=== PATIENT | male | born 1965 | race African-American/Black ===

== ENCOUNTER 2018-05-17 14:11 | Emergency (ER) | payer SELFPAY ==
--- NOTE | 2018-05-17 14:56 | RAD ---
CHEST 2 VIEWS: HISTORY: Cough. COMPARISON: None. FINDINGS: The heart size is enlarged. No focal airspace consolidation, pneumothorax, or effusion. Pulmonary a rteries are dilated. No acute osseous abnormality. IMPRESSION: Cardiomegaly and pulmonary arterial hypertension. POS: TPC
[2018-05-17 17:12] LABS: #Basophils 0.1 thou/uL (0.0-0.2); #Eosinphils 0.1 thou/uL (0.0-0.7); #Lymphocytes 2.8 thou/uL (1.20-3.40); #Monocytes 0.5 thou/uL (0.11-0.59); #Neutrophils 4.1 thou/uL (1.40-6.50); %Basophils 0.9 % (0.0-1.0); %Eosinophils 1.4 % (0.0-10.0); %Lymphocytes 37.4 % (21.0-51.0); %Monocytes 6.8 % (0.0-10.0); %Neutrophils 53.6 % (42.0-75.0); Hemoglobin 15.5 g/dL (14.0-18.0); Mean Corpuscular HGB CONC 32.2 g/dL (32.0-36.0); Mean Corpuscular Hemoglobin 30.2 pg (27.0-31.0); Mean Corpuscular Volume 93.9 fL (78.0-98.0); Platelet Count 265 thou/uL (130-400); RBC Distribution Width 11.8 % (11.5-14.5); Red Blood Cell (RBC) Count 5.13 mill/uL (4.70-6.10); White Blood Cell (WBC) Count 7.6 thou/uL (4.8-10.8)
[2018-05-17 17:35] LABS: ALT (SGPT) 11 U/L (8-55); AST (SGOT) 17 U/L (5-34); Albumin 4.2 g/dL (3.5-5.0); Alkaline Phosphatase 90 U/L (40-150); Anion Gap 15 mmol/L (10-20); BUN (Urea Nitrogen) 14 mg/dL (8.4-25.7); Bilirubin, Total 0.3 mg/dL (0.2-1.2); CK (CPK) 405 U/L (30-200); Calc. Creatinine Clearance 0 mL/min (70-130); Calcium 9.7 mg/dL (7.8-10.44); Carbon Dioxide 22 mmol/L (22-29); Chloride 104 mmol/L (98-107); Estimated GFR-MDRD 89; Globulin 3.5 g/dL (2.4-3.5); Glucose 105 mg/dL (70-105); Lipase 23 U/L (8-78); Potassium 3.6 mmol/L (3.5-5.1); Protein, Total 7.7 g/dL (6.0-8.3); Sodium 137 mmol/L (136-145)
--- NOTE | 2018-05-21 13:13 | EKG ---
Test Reason : Blood Pressure : / mmHG Vent. Rate : 084 BPM Atrial Rate : 084 BPM P-R Int : 160 ms QRS Dur : 098 ms QT Int : 402 ms P-R-T Axes : 028 -11 117 degrees QTc Int : 475 ms Normal sinus rhythm Possible Left atrial enlargement Left ventricular hypertrophy with repolarization abnormality Abnormal ECG Confirmed by ARYAN RAMOS DO ([id number]), pictures editor RITA AGUIRRE ([id number]) on 05/21/2018 1:12:53 PM Referred By: Confirmed By:ARYAN RAMOS DO
== END 2018-05-17 18:23 | disposition home or self-care (01) ==
LOC: ERS 14:11
DX: J20.9 Acute bronchitis, unspecified (principal); I10 Essential (primary) hypertension
CPT/HCPCS: 36415; 71046; 80053; 82550; 83690; 83880; 84484; 85025; 93005; 94640; J7620

== ENCOUNTER 2018-06-10 11:01 | Inpatient (IN) | payer SELFPAY ==
[2018-06-10] MEDS ORDERED: Furosemide 40 MG/4 ML VIAL ONE (11:23)
[2018-06-10] MEDS ORDERED: Aspirin Chewable 81 MG TAB ONE (11:23)
[2018-06-10] MEDS ORDERED: Nitroglycerin 0.4 MG TAB 1 EACH ONE (11:23)
[2018-06-10 11:27] LABS: #Eosinphils 0.1 thou/uL (0.0-0.7); #Lymphocytes 1.8 thou/uL (1.20-3.40); #Monocytes 0.8 thou/uL (0.11-0.59); %Basophils 0.6 % (0.0-1.0); %Eosinophils 1.4 % (0.0-10.0); %Lymphocytes 26.6 % (21.0-51.0); %Monocytes 11.3 % (0.0-10.0); %Neutrophils 60.1 % (42.0-75.0); Hemoglobin 15.6 g/dL (14.0-18.0); Mean Corpuscular HGB CONC 32.5 g/dL (32.0-36.0); Mean Corpuscular Hemoglobin 30.5 pg (27.0-31.0); Mean Corpuscular Volume 93.8 fL (78.0-98.0); Mean Platelet Volume 8.1 fL (7.4-10.4); Platelet Count 219 thou/uL (130-400); White Blood Cell (WBC) Count 6.7 thou/uL (4.8-10.8)
--- NOTE | 2018-06-10 12:03 | RAD ---
PORTABLE CHEST 1 VIEW: DATE: 06/10/2018. TIME: 10:28 a.m. HISTORY: Shortness of breath, chest pain, bilateral lower extremity edema. FINDINGS: Comparison is made with the exam of 05/17/2018. The heart is enlarged. The lungs are expanded without lobar consolidation, pneumothoraces, marcos pul monary edema, or large effusions. POS: OFF
[2018-06-10 12:09] LABS: ALT (SGPT) 17 U/L (8-55); AST (SGOT) 28 U/L (5-34); Albumin 4.4 g/dL (3.5-5.0); Alkaline Phosphatase 89 U/L (40-150); Anion Gap 16 mmol/L (10-20); BUN (Urea Nitrogen) 16 mg/dL (8.4-25.7); Bilirubin, Total 0.4 mg/dL (0.2-1.2); CK (CPK) 742 U/L (30-200); Calc. Creatinine Clearance 0 mL/min (70-130); Calcium 9.7 mg/dL (7.8-10.44); Carbon Dioxide 25 mmol/L (22-29); Chloride 99 mmol/L (98-107); Estimated GFR-MDRD 87; Globulin 3.4 g/dL (2.4-3.5); Glucose 112 mg/dL (70-105); Potassium 4.2 mmol/L (3.5-5.1); Protein, Total 7.8 g/dL (6.0-8.3); Sodium 136 mmol/L (136-145)
[2018-06-10] MEDS ORDERED: ISOVUE-370 76%-LOCM 1 ML ONE (12:45)
--- NOTE | 2018-06-10 14:24 | CT ---
CT ANGIO CHEST PERFORMED WITH IV CONTRAST ENHANCEMENT WITH 3D RECONSTRUCTIONS: Date: 06/10/18 HISTORY: Shortness of breath. Orthopnea. FINDINGS: There is bibasilar consolidation with air bronchograms. No pulmonary nodules. No significant mediasti nal, hilar, or axillary adenopathy. The thoracic aorta is normal in caliber. There is good pulmonary artery opacification. There is no CT evidence for pulmonary embolus. Visualized liver parenchyma shows no focal findings. IMPRESSION: 1. Bibasilar lung changes with air bronchograms suggesting bibasilar infiltrates. 2. No CT evidence for pulmonary embolus. POS: TPC
[2018-06-10 17:27] LABS: Cocaine Metabolite Screen Detected (NotDetected); Medtox Reader # READER 1; Methamphetamine Not Detected (NotDetected); Opiate Screen Detected (NotDetected); Phencyclidine (PCP) Not Detected (NotDetected); THC/Cannabinoid Screen Detected (NotDetected)
[2018-06-10 17:28] LABS: Amphetamine Not Detected (NotDetected); Barbiturates Screen Not Detected (NotDetected); Benzodiazepine Screen Not Detected (NotDetected); Medtox Control Line Valid? VALID (VALID); Methadone Not Detected (NotDetected); Oxycodone Screen Not Detected (NotDetected); Tricyclic Screen Not Detected (NotDetected)
[2018-06-10 17:54] LABS: Troponin I 0.022 ng/mL (< 0.028)
[2018-06-10 18:31] VITALS: BMI 38.6
[2018-06-10] MEDS ORDERED: Lisinopril/Hydrochlorothiazide 20 mg/12.5 mg Tablet PO SCH (20:45)
[2018-06-10] MEDS: hydrALAZINE 20 MG/ML VIAL SLOW IVP PRN (23:30)
[2018-06-11 00:09] LABS: Troponin I 0.025 ng/mL (< 0.028)
[2018-06-11 05:30] LABS: Anion Gap 14 mmol/L (10-20); BUN (Urea Nitrogen) 13 mg/dL (8.4-25.7); Calc. Creatinine Clearance 177 mL/min (70-130); Calcium 9.9 mg/dL (7.8-10.44); Carbon Dioxide 27 mmol/L (22-29); Chloride 97 mmol/L (98-107); Estimated GFR-MDRD Greater than 90; Glucose 132 mg/dL (70-105); Potassium 3.6 mmol/L (3.5-5.1); Sodium 134 mmol/L (136-145)
[2018-06-11] MEDS ORDERED: Furosemide 40 MG/4 ML VIAL SLOW IVP SCH (09:00)
[2018-06-11] MEDS: Enoxaparin Sodium 40 MG/0.4 ML SYRINGE SC SCH (09:27)
[2018-06-11] MEDS: Sodium Chloride 0.9% (PF) 10 ML VIAL FS PRN (09:27)
[2018-06-11] MEDS: Lisinopril/Hydrochlorothiazide 20 mg/12.5 mg Tablet PO SCH (09:27)
[2018-06-11] MEDS: Pantoprazole 40 MG VIAL IVP SCH (09:27)
[2018-06-11] MEDS ORDERED: Bacteriostatic Water 30 ML VIAL FS PRN (14:36)
[2018-06-11] MEDS ORDERED: methylPREDNISolone Sod Succ/PF 125 MG/2 ML VIAL IVP SCH (14:45)
[2018-06-11] MEDS: methylPREDNISolone Sod Succ 40 MG VIAL IVP SCH ×2 (20:30→23:37)
--- NOTE | 2018-06-11 23:28 | PRG ---
DATE OF SERVICE: 06/11/2018 HISTORY OF PRESENT ILLNESS: Hong Levin is a very pleasant gentleman. He quickly admits today that he smokes marijuana, but not every day. He presents with a cough, chest congestion, and some mild shortness of breath. He subsequently has been admitted. PAST MEDICAL HISTORY: Remarkable for hypertension. SOCIAL HISTORY: He does smoke cigarettes and does smoke marijuana, chews tobacco. He is not a daily drinker. FAMILY HISTORY: Negative for lung disease in early age. REVIEW OF SYSTEMS: Ten point review of systems completed, otherwise negative. PHYSICAL EXAMINATION: VITAL SIGNS: Have been stable since he is admitted. GENERAL: He is in no distress. He is coughing quite frequently. HEENT: Pupils are equal. Sclerae anicteric. NECK: Supple. No lymphadenopathies. LUNGS: Remarkable only for faint wheezes. HEART: Regular rhythm. S1 and S2 are normal. No murmur or gallop. ABDOMEN: Soft and nontender. EXTREMITIES: Without clubbing, cyanosis, or edema. IMAGING: I reviewed his chest x-ray and all of his chest imaging. I do not see any infiltrate suggestive of pneumonia or cardiogenic pulmonary edema. LABORATORY DATA: White count yesterday 6.7, hemoglobin 15.6, platelets 219. Sodium 134, potassium 3.6, chloride 97, bicarb 27, BUN 13, and creatinine 0.87. IMPRESSION: Asthmatic bronchitis, clinically stable. He needs steroids, antibiotics, cough suppression a little time. I do not really feel that he has no community-acquired pneumonia after reviewing his radiographs, although I suppose it could be an early community-acquired pneumonia with his bibasilar atelectatic changes. PLAN: The treatment will be the same. We will follow along with the other physicians caring for him. TIME SPENT: This was a 70-minute consult, with greater than 50% of the time spent on the unit coordinating care. Job ID: [id number] [facility]
[2018-06-12] MEDS: methylPREDNISolone Sod Succ 40 MG VIAL IVP SCH ×4 (05:05→23:46)
[2018-06-12] MEDS: hydrALAZINE 20 MG/ML VIAL SLOW IVP PRN (05:06)
[2018-06-12 06:52] LABS: Anion Gap 16 mmol/L (10-20); BUN (Urea Nitrogen) 17 mg/dL (8.4-25.7); Calc. Creatinine Clearance 140 mL/min (70-130); Calcium 10.3 mg/dL (7.8-10.44); Carbon Dioxide 29 mmol/L (22-29); Chloride 94 mmol/L (98-107); Estimated GFR-MDRD 87; Glucose 166 mg/dL (70-105); Potassium 3.7 mmol/L (3.5-5.1); Sodium 135 mmol/L (136-145)
[2018-06-12] MEDS ORDERED: Furosemide 20 MG TAB PO SCH (09:00)
[2018-06-12] MEDS: Lisinopril/Hydrochlorothiazide 20 mg/12.5 mg Tablet PO SCH ×2 (10:23→20:59)
[2018-06-12] MEDS: Enoxaparin Sodium 40 MG/0.4 ML SYRINGE SC SCH (10:24)
[2018-06-12] MEDS: Sodium Chloride 0.9% (PF) 10 ML VIAL FS PRN (10:24)
[2018-06-12] MEDS: Pantoprazole 40 MG VIAL IVP SCH (10:24)
--- NOTE | 2018-06-12 15:54 | PRG ---
DATE OF SERVICE: 06/12/2018 SUBJECTIVE: Mr. Levin says he feels better. He still has a loud cough, but not coughing as much as he was yesterday. OBJECTIVE: VITAL SIGNS: He is afebrile. Heart rate is 95, blood pressure 150/94, and respiratory rate is 20. LUNGS: Remarkable for diffuse wheezes. HEART: Regular rhythm. ABDOMEN: Soft and nontender. LABORATORY DATA: Electrolytes are normal. IMPRESSION AND PLAN: Asthmatic bronchitis, slowly improving. Job ID: [id number]
[2018-06-12] MEDS: guaiFENesin ER 600 MG TAB PO PRN (22:14)
--- NOTE | 2018-06-13 01:43 | HP ---
CHIEF COMPLAINT: Shortness of breath. HISTORY OF PRESENT ILLNESS: Mr. Levin is a 53-year-old male with past medical history of hypertension, noncompliant with medications, came with shortness of breath and orthopnea started last night. The patient could not breathe this morning because the shortness of breath got worse. He has a history of hypertension, not taking medications. Also noticed bilateral leg edema for four days, which is getting worse as well. He did not have any nausea or vomiting. No headache. No dizziness. EMS was called in because of his worsening shortness of breath. EMS found the patient with a blood pressure of 194/125, O2 saturations of 90% on room air. The patient was given nitroglycerin paste and sublingual nitroglycerin and given DuoNebs and 4 mg of morphine, and was on CPAP after which the saturation improved. In the ER, the patient was still hypoxic, so he was continued on CPAP. ER physician thought pt has CHF based on the clinical exam with pitting edema as well as lung signs. The patient received a dose of Lasix and nitro and is being admitted for further evaluation and management. PAST MEDICAL HISTORY: 1. Hypertension, not taking medication. 2. Morbid obesity. 3. Possible sleep apnea, not evaluated. PAST SURGICAL HISTORY: Nothing significant. CURRENT MEDICATIONS: The patient is supposed to be on lisinopril and hydrochlorothiazide 01/07.5. FAMILY HISTORY: Nothing contributory. SOCIAL HISTORY: The patient drinks alcohol almost daily, almost five drinks per day. He quit smoking some time ago. REVIEW OF SYSTEMS: CARDIOVASCULAR: Shortness of breath with some chest pain. RESPIRATORY: No fever, but has cough, nonproductive. GASTROINTESTINAL: No nausea or vomiting. Has abdominal discomfort. CENTRAL NERVOUS SYSTEM: No headache or dizziness. PHYSICAL EXAMINATION: GENERAL: The patient is alert, awake, oriented x3. VITAL SIGNS: Temperature 98, pulse 90, respirations 18, blood pressure initially 209/126. HEENT: Head is normocephalic and atraumatic. Pupils are equal and reactive. Nasopharynx is clear and dry. NECK: Supple. No JVD. LUNGS wheezing +, rales + HEART: S1 and S2 regular. ABDOMEN: Obese, umbilical hernia present. Abdomen is mildly distended. Nontender. Bowel sounds heard. RECTAL: No symptoms. CENTRAL NERVOUS SYSTEM: No focal deficits. EXTREMITIES: 4+ pitting edema. LABORATORY DATA: CBC shows WBC 6.7, hemoglobin 15, hematocrit 47, platelets 219. Metabolic panel: Sodium 136, potassium 4.2, chloride 99, CO2 of 25, BUN 16, creatinine 1, glucose 112. CK 742, troponin I 0.022. BNP was 112. DIAGNOSTIC DATA: Chest x-ray, no evidence of acute findings. EKG shows normal sinus rhythm, no acute ST-T changes seen. ASSESSMENT: 1. Shortness of breath and cough, possible asthamatic bronchitis with respiratory failure 2. ? obstructive sleep apnea. 3. Rule out pneumonia. 4. Morbid obesity. 5. Hypertensive emergency. 6. Noncompliant with medications. 7. Alcohol abuse. PLAN: 1. Vital signs q.4 hours. 2. Activity as tolerated. 3. Allergies, NKDA. 4. Diet, cardiac. 5. duonebs i unit qid 6. Echocardiogram. 7. Troponin I x2 q.6 hours. 8. Lisinopril 20/12.5 daily. 9. Basic metabolic panel in the morning. 10. Lovenox 40 daily. 11. Protonix 40 mg IV piggyback daily. 12.steroids 13 levoquin 750 mg daily Job ID: [id number] [facility]
[2018-06-13] MEDS: methylPREDNISolone Sod Succ 40 MG VIAL IVP SCH (05:18)
[2018-06-13 06:00] LABS: Anion Gap 19 mmol/L (10-20); BUN (Urea Nitrogen) 26 mg/dL (8.4-25.7); Calc. Creatinine Clearance 116 mL/min (70-130); Calcium 10.8 mg/dL (7.8-10.44); Carbon Dioxide 29 mmol/L (22-29); Chloride 93 mmol/L (98-107); Estimated GFR-MDRD 70; Glucose 169 mg/dL (70-105); Potassium 4.6 mmol/L (3.5-5.1); Sodium 136 mmol/L (136-145)
[2018-06-13] MEDS: Lisinopril/Hydrochlorothiazide 20 mg/12.5 mg Tablet PO SCH ×2 (09:58→20:06)
[2018-06-13] MEDS: guaiFENesin ER 600 MG TAB PO PRN ×2 (09:59→22:55)
[2018-06-13] MEDS: Enoxaparin Sodium 40 MG/0.4 ML SYRINGE SC SCH (09:59)
[2018-06-13] MEDS ORDERED: predniSONE 20 MG TAB PO SCH (10:30)
--- NOTE | 2018-06-13 11:53 | PRG ---
DATE OF SERVICE: 06/13/2018 SUBJECTIVE: Mr. Levin is afebrile. OBJECTIVE: VITAL SIGNS: Heart rate in 80s, blood pressure 160/91, respiratory rate in the teens. LUNGS: His wheezes improved dramatically. HEART: Regular rhythm. ABDOMEN: Soft. LABORATORY DATA: No new lab. IMPRESSION AND PLAN: Asthmatic bronchitis. Electrolytes are unremarkable. Today's creatinine is 1.3 up from 0.8 on admission. His furosemide was discontinued yesterday afternoon. Switching to p.o. antibiotics and p.o. prednisone. He can move out of the intermediate care unit to a floor bed. Job ID: [id number]
[2018-06-13] MEDS: Amoxicillin/Potassium Clav 875 MG TAB PO SCH (20:06)
[2018-06-13 20:07] VITALS: BP 169/100
[2018-06-14 05:34] LABS: Anion Gap 15 mmol/L (10-20); BUN (Urea Nitrogen) 28 mg/dL (8.4-25.7); Calc. Creatinine Clearance 128 mL/min (70-130); Calcium 10.1 mg/dL (7.8-10.44); Carbon Dioxide 29 mmol/L (22-29); Chloride 95 mmol/L (98-107); Estimated GFR-MDRD 79; Glucose 132 mg/dL (70-105); Potassium 3.8 mmol/L (3.5-5.1); Sodium 135 mmol/L (136-145)
[2018-06-14] MEDS ORDERED: predniSONE 20 MG TAB PO SCH (08:00)
[2018-06-14] MEDS: Enoxaparin Sodium 40 MG/0.4 ML SYRINGE SC SCH (08:46)
[2018-06-14] MEDS: Amoxicillin/Potassium Clav 875 MG TAB PO SCH (08:46)
[2018-06-14] MEDS: Lisinopril/Hydrochlorothiazide 20 mg/12.5 mg Tablet PO SCH (08:46)
[2018-06-14] MEDS ORDERED: hydrALAZINE 25 MG TAB PO SCH (09:00)
[2018-06-14 15:26] VITALS: TEMP 97.8
--- NOTE | 2018-06-14 15:52 | PRG ---
DATE OF SERVICE: 06/14/2018 SUBJECTIVE: Mr. Levin says he is feeling better. He is in no distress. Surprisingly, his EF was quantitated as 40% to 50%. This is a poor quality exam, so he may actually not have a depressed left ventricular function. OBJECTIVE: LUNGS: His lungs have cleared up considerably. HEART: Regular rhythm. ABDOMEN: Soft. I have written prescriptions for prednisone, nebulizer medication, and Augmentin. I will be happy to see him in 1 to 2 weeks in the office. His echocardiogram could be repeated as an outpatient. I would think him and probably, he does not need an extensive workup on this admission since he did not present with acute congestive heart failure, may have just had asthmatic bronchitis with perhaps early pneumonia at his lung bases. Job ID: [id number]
--- NOTE | 2018-06-15 12:32 | DIS ---
DATE OF ADMISSION: 06/10/2018 DATE OF DISCHARGE: 06/14/2018 ADMITTING DIAGNOSES: 1. Shortness of breath, cough, possible asthmatic bronchitis with respiratory failure. 2. Rule out obstructive sleep apnea. 3. Rule out pneumonia. 4. Morbid obesity. 5. Hypertensive emergency. 6. Noncompliant with medication. 7. Alcohol abuse. FINAL DIAGNOSES: 1. Acute asthmatic bronchitis with respiratory failure, improved. 2. Possible pneumonia. 3. Morbid obesity. 4. Hypertensive emergency, improved. 5. Noncompliant with medication. 6. Alcohol abuse. 7. Polysubstance abuse. BRIEF SUMMARY OF HOSPITAL COURSE: Mr. Levin is a 53-year-old male admitted because of shortness of breath. The patient was found to have markedly elevated blood pressure of 190/120. The patient initially was on CPAP for respiratory failure, admitted to [facility]. The patient was found to have chest wheezing, was started on Solu-Medrol as well as neb treatments, antibiotics, Levaquin. Pulmonary consult was done. The patient was seen by Dr. Reeves, who felt that the patient has acute asthmatic bronchitis and possible pneumonia after the neb treatments, Solu-Medrol, antibiotics. In the next few days, the patient markedly improved. His blood pressure was controlled by adjusting medications, but blood pressure still remained high, so lisinopril dose was increased and also second medication was added, which was hydralazine. After this, his blood pressure was controlled. An echocardiogram was done, which revealed decreased LV function with ejection fraction of 40% to 50% and also showed some diastolic dysfunction. The patient's urine drug screen was done and it revealed positive for cocaine, cannabinoids, and opiates. The patient admits to abusing drugs. The patient markedly improved in the next 2 days. His shortness of breath improved, his chest wheezing resolved. Blood pressure was controlled in the ER. The patient is being discharged home. PHYSICAL EXAMINATION: GENERAL: At the time of discharge, he was stable. VITAL SIGNS: Stable. LUNGS: Clear. HEART: Heart sounds regular. ABDOMEN: Soft, nontender. Bowel sounds present. DISCHARGE MEDICATIONS: Include: 1. Lisinopril with hydrochlorothiazide 20/12.5 b.i.d. 2. Hydralazine 50 mg b.i.d. 3. Prednisone in tapering doses. 4. Augmentin 875 b.i.d. for 1 week. 5. DuoNebs q.i.d. The patient was strongly advised not to use cocaine and marijuana, as well as opiates. He will come for followup in 2 weeks. Job ID: [id number]
== END 2018-06-14 18:41 | disposition home or self-care (01) | DRG 203 ==
LOC: ERS 11:01 → ERHOLD 13:29 → IMCU/EMU 18:05
PROVIDERS: ADMIT Internal Medicine; ATTEND Internal Medicine
DX: J45.909 Unspecified asthma, uncomplicated (principal)
CPT/HCPCS: 36415; 71045; 71275; 80048; 80053; 80306; 82550; 83880; 84484; 85025; 93005; 93306; 94640; 94660; 94760; 96374; C9113; J0360; J1650; J1940; J1956; J2920; J2930; J7620; Q9966

== ENCOUNTER 2022-05-07 12:36 | Emergency (ER) | payer SELFPAY ==
[2022-05-07] MEDS ORDERED: Furosemide 40 MG/4 ML VIAL ONE (13:04)
[2022-05-07] MEDS ORDERED: cloNIDine 0.1 MG TAB ONE (13:04)
== END 2022-05-07 13:31 | disposition home or self-care (01) ==
LOC: ERS 12:36
DX: I10 Essential (primary) hypertension (principal); E11.9 Type 2 diabetes mellitus without complications; Z79.899 Other long term (current) drug therapy
CPT/HCPCS: 96372; 99283; J1940

== ENCOUNTER 2022-09-30 10:00 | Inpatient (IN) | payer OTHER, SELFPAY ==
[2022-09-30] MEDS ORDERED: Naloxone HCl 0.4 mg/ml Vial ONE (10:26)
[2022-09-30 10:53] LABS: #Basophils 0.1 thou/uL (0.0-0.2); #Eosinphils 0.1 thou/uL (0.0-0.7); #Monocytes 0.7 thou/uL (0.11-0.59); #Neutrophils 6.9 thou/uL (1.40-6.50); %Basophils 0.5 % (0.0-1.0); %Eosinophils 0.9 % (0.0-10.0); %Lymphocytes 18.7 % (21.0-51.0); %Monocytes 7.4 % (0.0-10.0); %Neutrophils 71.2 % (42.0-75.0); Mean Corpuscular HGB CONC 32.9 g/dL (32.0-36.0); Mean Corpuscular Hemoglobin 30.8 pg (27.0-31.0); Mean Corpuscular Volume 93.8 fl (78.0-98.0); Mean Platelet Volume 9.4 fL (7.4-10.4); Platelet Count 289 10x3/uL (130-400); RBC Distribution Width 13.7 % (11.5-14.5); Red Blood Cell (RBC) Count 2.27 mill/uL (4.70-6.10); White Blood Cell (WBC) Count 9.7 10x3/uL (4.8-10.8)
[2022-09-30 10:57] LABS: Actual Bicarbonate (HCO3a) 25.7 mEq/L (22-28); Analyzer IN Cardio ER; Base Excess (BEa) 1.9 mEq/L (-2.0 to +3.0); CO2 Tension 36.6 mmHg (35.0-45.0); Carboxyhemoglobin (COHb) 0.3 gm% (0.0-3.0); Hematocrit-ABG 22 % (42.0-52.0); Hemoglobin (Hb) 7.5 g/dL (14.0-18.0); O2 Tension (PaO2), arterial 104.1 mmHg (80.0-100.0); Potassium - ABG Lab 3.37 mmol/L (3.70-5.30); pH, Arterial 7.465 (7.35-7.45)
[2022-09-30 10:59] LABS: Puncture Site Right Brachial
[2022-09-30 11:18] LABS: ALT (SGPT) 7 U/L (8-55); AST (SGOT) 11 U/L (5-34); Acetaminophen Less than 10 mcg/mL (10.0-30.0); Albumin 3.1 g/dL (3.5-5.0); Alcohol Less than 10.0 mg/dL (Less than 10); Alkaline Phosphatase 84 U/L (40-110); Anion Gap 13 mmol/L (10-20); BUN (Urea Nitrogen) 15 mg/dL (8.4-25.7); Bilirubin, Total 0.3 mg/dL (0.2-1.2); Calc. Creatinine Clearance 0 mL/min (70-130); Calcium 8.4 mg/dL (7.8-10.44); Carbon Dioxide 26 mmol/L (22-29); Chloride 101 mmol/L (98-107); Estimated GFR 58; Globulin 3.6 g/dL (2.4-3.5); Glucose 175 mg/dL (70-105); Potassium 3.5 mmol/L (3.5-5.1); Protein, Total 6.7 g/dL (6.0-8.3); Salicylate Less than 8.0 mg/dL (15.0-30.0); Sodium 136 mmol/L (136-145)
[2022-09-30 12:05] LABS: Bacteria/HPF None Seen HPF (None Seen); Bilirubin Negative (Negative); Blood, Urine Negative (Negative); CAUTI Indications for Culture Alt mental st,lethar; Clarity Clear (Clear); Glucose, Urine (Dipstick) Normal (Negative); Ketone, Urine Negative (Negative); Leukocyte Negative Leu/uL (Negative); Nitrite Negative (Negative); Protein, Urine (Dipstick) Negative (Neg-Trace); RBC/HPF 0-3 HPF (0-3); Specific Gravity, Urine 1.009 (1.002-1.036); Squamous Epithelial None Seen HPF (0-3); Urobilinogen Normal mg/dL (Less than 2); WBC/HPF 0-3 HPF (0-3); pH, Urine 5.5 (5.0-9.0)
[2022-09-30 12:07] LABS: Urine Culture Reflex No No
[2022-09-30 12:09] LABS: Amphetamine Detected (NotDetected); Barbiturates Screen Not Detected (NotDetected); Benzodiazepine Screen Not Detected (NotDetected); Cocaine Metabolite Screen Not Detected (NotDetected); Methadone Not Detected (NotDetected); Methamphetamine Detected (NotDetected); Opiate Screen Not Detected (NotDetected); Oxycodone Screen Not Detected (NotDetected); Phencyclidine (PCP) Not Detected (NotDetected); THC/Cannabinoid Screen Detected (NotDetected); Tricyclic Screen Not Detected (NotDetected)
[2022-09-30] MEDS ORDERED: Iopamidol-370 76% 500 ML MDV (1 ML CHARGE) ONE (12:51)
[2022-09-30] MEDS ORDERED: Acetaminophen 325 MG TAB PO PRN (13:35)
[2022-09-30] MEDS ORDERED: Senokot S 8.6-50 MG TAB PO PRN (13:35)
[2022-09-30] MEDS ORDERED: Dextrose 5% in Water 1,000 ML IV PRN (13:58)
[2022-09-30] MEDS ORDERED: Dextrose 50% Abboject 50 ML SYRINGE SLOW IVP PRN (13:58)
[2022-09-30] MEDS ORDERED: HumaLOG 300 UNITS/3 ML VIAL SC PRN (13:58)
[2022-09-30] MEDS ORDERED: Glucagon 1 MG/ML KIT IM PRN (13:58)
[2022-09-30] MEDS ORDERED: Piperacillin/Tazobactam 3.375 GM in Sodium Chloride 0.9% 100 ML IVPB SCH (14:15)
[2022-09-30 15:36] LABS: CKMB 1.3 ng/mL (0-6.6)
[2022-09-30] MEDS: Piperacillin/Tazobactam 3.375 GM in Sodium Chloride 0.9% 100 ML IVPB SCH (17:07)
[2022-09-30] MEDS: Furosemide 40 MG TAB PO SCH (17:08)
[2022-09-30] MEDS: Carvedilol 25 MG TAB PO SCH (17:08)
[2022-09-30 18:51] VITALS: BMI 41.2
[2022-09-30 19:48] LABS: CKMB 1.1 ng/mL (0-6.6)
[2022-09-30] MEDS: Atorvastatin Calcium 40 MG TAB PO SCH (20:12)
[2022-09-30] MEDS: Famotidine 20 MG TAB PO SCH (20:12)
[2022-10-01 00:49] LABS: Hemoglobin 7.6 g/dL (14.0-18.0)
[2022-10-01] MEDS: Piperacillin/Tazobactam 3.375 GM in Sodium Chloride 0.9% 100 ML IVPB SCH ×2 (02:06→08:33)
[2022-10-01 05:29] LABS: #Basophils 0.1 thou/uL (0.0-0.2); #Eosinphils 0.2 thou/uL (0.0-0.7); #Monocytes 0.6 thou/uL (0.11-0.59); #Neutrophils 5.1 thou/uL (1.40-6.50); %Basophils 0.7 % (0.0-1.0); %Lymphocytes 20.7 % (21.0-51.0); %Monocytes 8.3 % (0.0-10.0); %Neutrophils 67.2 % (42.0-75.0); Mean Corpuscular Volume 93.6 fl (78.0-98.0); Mean Platelet Volume 9.6 fL (7.4-10.4); Platelet Count 286 10x3/uL (130-400); RBC Distribution Width 15.7 % (11.5-14.5); Red Blood Cell (RBC) Count 2.67 mill/uL (4.70-6.10); White Blood Cell (WBC) Count 7.6 10x3/uL (4.8-10.8)
[2022-10-01 05:57] LABS: Anion Gap 12 mmol/L (10-20); BUN (Urea Nitrogen) 10 mg/dL (8.4-25.7); Calc. Creatinine Clearance 153 mL/min (70-130); Carbon Dioxide 27 mmol/L (22-29); Chloride 104 mmol/L (98-107); Estimated GFR 86; Glucose 133 mg/dL (70-105); Iron 49 ug/dL (65-175); Iron Binding Capacity, Total 345 mcg/dL (261-462); Potassium 3.6 mmol/L (3.5-5.1); Sodium 139 mmol/L (136-145)
[2022-10-01 06:17] LABS: Ferritin 233.26 ng/mL (22-322)
[2022-10-01] MEDS: Spironolactone 25 MG TAB PO SCH (08:32)
[2022-10-01] MEDS: Carvedilol 25 MG TAB PO SCH ×2 (08:32→17:15)
[2022-10-01] MEDS: Famotidine 20 MG TAB PO SCH ×2 (08:32→20:05)
[2022-10-01] MEDS: Furosemide 40 MG TAB PO SCH ×2 (08:33→14:30)
[2022-10-01 10:17] LABS: INR-International Normal Ratio 1.1; Prothrombin Time 15.1 sec (12.0-14.7)
[2022-10-01] MEDS: Atorvastatin Calcium 40 MG TAB PO SCH (20:04)
[2022-10-02 07:46] LABS: #Eosinphils 0.2 thou/uL (0.0-0.7); #Monocytes 0.6 thou/uL (0.11-0.59); #Neutrophils 5.2 thou/uL (1.40-6.50); %Basophils 0.5 % (0.0-1.0); %Eosinophils 2.4 % (0.0-10.0); %Neutrophils 65.1 % (42.0-75.0); Hemoglobin 8.5 g/dL (14.0-18.0); Mean Corpuscular HGB CONC 32.2 g/dL (32.0-36.0); Mean Corpuscular Hemoglobin 30.6 pg (27.0-31.0); Mean Platelet Volume 9.3 fL (7.4-10.4); Platelet Count 297 10x3/uL (130-400); RBC Distribution Width 16.4 % (11.5-14.5); Red Blood Cell (RBC) Count 2.78 mill/uL (4.70-6.10); White Blood Cell (WBC) Count 7.9 10x3/uL (4.8-10.8)
[2022-10-02] MEDS: Carvedilol 25 MG TAB PO SCH (08:46)
[2022-10-02] MEDS: Famotidine 20 MG TAB PO SCH (08:47)
[2022-10-02] MEDS: Furosemide 40 MG TAB PO SCH (08:47)
[2022-10-02] MEDS: Spironolactone 25 MG TAB PO SCH (08:47)
[2022-10-02 11:34] VITALS: BP 110/76; TEMP 96.8
== END 2022-10-02 13:08 | disposition home or self-care (01) | DRG 441 ==
LOC: ERS 10:00 → ERHOLD 13:17 → OBSVTOIN 13:35 → 2SE 14:25
PROVIDERS: ADMIT Hospitalist; ATTEND Internal Medicine
PROC: 4A033R1 Measurement of Arterial Saturation, Peripheral, Percutaneous Approach (ICD-10-PCS; principal; 2022-09-30)
PROC: 30233N1 Transfusion of Nonautologous Red Blood Cells into Peripheral Vein, Percutaneous Approach (ICD-10-PCS; 2022-09-30)
DX: K76.82 Hepatic encephalopathy (principal); G92.8 Other toxic encephalopathy; D62 Acute posthemorrhagic anemia; L97.819 Non-pressure chronic ulcer of other part of right lower leg with unspecified severity; N17.9 Acute kidney failure, unspecified; I50.42 Chronic combined systolic (congestive) and diastolic (congestive) heart failure; I11.0 Hypertensive heart disease with heart failure; D64.9 Anemia, unspecified; F19.10 Other psychoactive substance abuse, uncomplicated; I34.0 Nonrheumatic mitral (valve) insufficiency; F15.10 Other stimulant abuse, uncomplicated; E11.622 Type 2 diabetes mellitus with other skin ulcer; G47.33 Obstructive sleep apnea (adult) (pediatric); V89.2XXA Person injured in unspecified motor-vehicle accident, traffic, initial encounter; Z79.82 Long term (current) use of aspirin; Z79.899 Other long term (current) drug therapy; Y92.89 Other specified places as the place of occurrence of the external cause
CPT/HCPCS: 36415; 36416; 36430; 70450; 71260; 74177; 80048; 80053; 80306; 80307; 81001; 82140; 82274; 82553; 82607; 82728; 82805; 83540; 83550; 84443; 84484; 85025; 85379; 85610; 86850; 86900; 86901; 93005; 96374; 97139; J2310; J2543; J3490; P9016; Q9967

== ENCOUNTER 2023-07-31 13:17 | Inpatient (IN) | payer OTHER ==
[2023-07-31] MEDS ORDERED: Cefepime 2 GM VIAL ONE (13:53)
[2023-07-31] MEDS ORDERED: Sodium Chloride 0.9% 100 ML ONE (13:54)
[2023-07-31 13:58] LABS: #Basophils 0.05 10x3/uL (0.0-0.2); %Basophils 0.7 % (0.0-1.0); %Eosinophils 1.9 % (0.0-10.0); %Lymphocytes 23.8 % (21.0-51.0); %Monocytes 10.8 % (0.0-10.0); Hematocrit 41.6 % (42.0-52.0); Hemoglobin 13.4 g/dL (14.0-18.0); Mean Corpuscular HGB CONC 32.2 g/dL (32.0-36.0); Mean Corpuscular Hemoglobin 29.3 pg (27.0-31.0); Mean Corpuscular Volume 90.8 fL (78.0-98.0); Mean Platelet Volume 9.3 fL (7.4-10.4); Platelet Count 534 10x3/uL (130-400); RBC Distribution Width 14.6 % (11.5-14.5); Red Blood Cell (RBC) Count 4.58 mill/uL (4.70-6.10)
[2023-07-31 14:05] LABS: Globulin 5.2 g/dL (2.4-3.5)
[2023-07-31 14:09] LABS: ALT (SGPT) 16 U/L (8-55); AST (SGOT) 18 U/L (5-34); Albumin 2.6 g/dL (3.5-5.0); Alkaline Phosphatase 118 U/L (40-110); Anion Gap 16 mmol/L (10-20); BUN (Urea Nitrogen) 21 mg/dL (8.4-25.7); Bilirubin, Total 0.3 mg/dL (0.2-1.2); Calc. Creatinine Clearance 0 mL/min (70-130); Calcium 9.2 mg/dL (7.8-10.44); Carbon Dioxide 21 mmol/L (22-29); Chloride 104 mmol/L (98-107); Estimated GFR 76; Glucose 211 mg/dL (70-105); Potassium 4.2 mmol/L (3.5-5.1); Protein, Total 7.8 g/dL (6.0-8.3); Sodium 137 mmol/L (136-145)
[2023-07-31 14:11] LABS: Troponin I 0.036 ng/mL (< 0.028)
[2023-07-31 14:23] LABS: INR-International Normal Ratio 1.1; Prothrombin Time 14.6 sec (12.0-14.7)
[2023-07-31 14:24] LABS: PTT 30.7 sec (22.9-36.1)
[2023-07-31 14:36] LABS: Acetaminophen Less than 10 mcg/mL (10.0-30.0); Alcohol 14.5 mg/dL (Less than 10); Salicylate Less than 8.0 mg/dL (15.0-30.0)
[2023-07-31] MEDS ORDERED: Vancomycin 1 GM/200 ML (FROZEN) BAG ONE (15:06)
[2023-07-31 17:05] LABS: Lactic Acid 1.1 mmol/L (0.5-2.2)
[2023-07-31] MEDS ORDERED: Glucagon 1 MG/ML KIT IM PRN (18:07)
[2023-07-31] MEDS ORDERED: Senokot S 8.6-50 MG TAB PO PRN (18:07)
[2023-07-31] MEDS ORDERED: Dextrose 5% in Water 1,000 ML IV PRN (18:07)
[2023-07-31] MEDS ORDERED: Dextrose 50% Abboject 50 ML SYRINGE SLOW IVP PRN (18:07)
[2023-07-31] MEDS ORDERED: Acetaminophen 325 MG TAB PO PRN (18:07)
[2023-07-31] MEDS ORDERED: HumaLOG 300 UNITS/3 ML VIAL SC PRN (18:07)
[2023-07-31] MEDS: Heparin 5,000 UNITS/ML VIAL SC SCH (20:04)
[2023-07-31] MEDS: Vancomycin (BATCH) 1.5 GM in Premix 1 BAG IVPB SCH (20:04)
[2023-07-31] MEDS: Atorvastatin Calcium 40 MG TAB PO SCH (20:04)
[2023-07-31] MEDS ORDERED: Vancomycin 1 GM in Sodium Chloride 0.9% 250 ML 300 ML IVPB SCH (21:00)
[2023-08-01] MEDS: Cefepime 2 GM in Sodium Chloride 0.9% 100 ML IVPB SCH (03:08)
[2023-08-01 06:25] LABS: #Basophils 0.12 10x3/uL (0.0-0.2); %Basophils 1.7 % (0.0-1.0); %Lymphocytes 20.1 % (21.0-51.0); %Monocytes 11.8 % (0.0-10.0); %Neutrophils 63.8 % (42.0-75.0); Hematocrit 41.6 % (42.0-52.0); Mean Corpuscular HGB CONC 31.3 g/dL (32.0-36.0); Mean Corpuscular Volume 92.7 fL (78.0-98.0); Platelet Count 516 10x3/uL (130-400); RBC Distribution Width 14.7 % (11.5-14.5); Red Blood Cell (RBC) Count 4.49 mill/uL (4.70-6.10)
[2023-08-01 06:42] LABS: Globulin 5.2 g/dL (2.4-3.5)
[2023-08-01 06:46] LABS: ALT (SGPT) 18 U/L (8-55); AST (SGOT) 21 U/L (5-34); Albumin 2.6 g/dL (3.5-5.0); Alkaline Phosphatase 114 U/L (40-110); Anion Gap 12 mmol/L (10-20); BUN (Urea Nitrogen) 17 mg/dL (8.4-25.7); Bilirubin, Total 0.4 mg/dL (0.2-1.2); Calc. Creatinine Clearance 147 mL/min (70-130); Calcium 9.1 mg/dL (7.8-10.44); Carbon Dioxide 23 mmol/L (22-29); Chloride 104 mmol/L (98-107); Estimated GFR 96; Glucose 140 mg/dL (70-105); Potassium 4.5 mmol/L (3.5-5.1); Protein, Total 7.8 g/dL (6.0-8.3); Sodium 134 mmol/L (136-145)
[2023-08-01 06:53] LABS: Vancomycin, Random 16.6 ug/mL (See Comment)
[2023-08-01] MEDS: Spironolactone 25 MG TAB PO SCH (08:54)
[2023-08-01] MEDS: Aspirin 81 mg Enteric Coated Tablet PO SCH (08:54)
[2023-08-01] MEDS: Furosemide 40 MG TAB PO SCH (08:54)
[2023-08-01] MEDS: Thiamine 100 MG TAB PO SCH (08:54)
[2023-08-01] MEDS: Folic Acid 1 MG TAB PO SCH (08:55)
[2023-08-01] MEDS: Vancomycin (BATCH) 1.25 GM in Premix 1 BAG IVPB SCH (08:59)
[2023-08-01] MEDS: Multivitamin W/ Minerals 1 TAB PO SCH (08:59)
[2023-08-01] MEDS: cefTRIAXone\\ROCEPHIN 1 GM in Sodium Chloride 0.9% 100 ML IVPB SCH (15:22)
[2023-08-01] MEDS: Isosorbide Dinitrate 20 MG TAB PO SCH (15:23)
[2023-08-01] MEDS: hydrALAZINE 25 MG TAB PO SCH (15:23)
[2023-08-01] MEDS: HumaLOG 300 UNITS/3 ML VIAL SC PRN (17:50)
[2023-08-01] MEDS: Labetalol HCl 100 MG TAB PO SCH (20:47)
[2023-08-02] MEDS: Lisinopril 20 MG TAB PO SCH (08:01)
[2023-08-02 10:29] LABS: Anion Gap 16 mmol/L (10-20); BUN (Urea Nitrogen) 20 mg/dL (8.4-25.7); Calc. Creatinine Clearance 125 mL/min (70-130); Calcium 9.3 mg/dL (7.8-10.44); Carbon Dioxide 24 mmol/L (22-29); Chloride 100 mmol/L (98-107); Estimated GFR 81; Glucose 157 mg/dL (70-105); Potassium 4.1 mmol/L (3.5-5.1); Sodium 136 mmol/L (136-145)
[2023-08-03 08:03] VITALS: TEMP 98.1
[2023-08-03 14:35] VITALS: BP 124/74
== END 2023-08-03 18:30 | disposition home or self-care (01) | DRG 872 ==
LOC: ERS 13:17 → T4-A 15:57 → OBSVTOIN 18:12
PROVIDERS: ADMIT Family Medicine; ATTEND Internal Medicine
DX: A41.1 Sepsis due to other specified staphylococcus (principal); I50.22 Chronic systolic (congestive) heart failure; L03.115 Cellulitis of right lower limb; L03.116 Cellulitis of left lower limb; A41.81 Sepsis due to Enterococcus; I11.0 Hypertensive heart disease with heart failure; E11.9 Type 2 diabetes mellitus without complications; E66.01 Morbid (severe) obesity due to excess calories; S81.802A Unspecified open wound, left lower leg, initial encounter; S81.801A Unspecified open wound, right lower leg, initial encounter; I87.8 Other specified disorders of veins
CPT/HCPCS: 36415; 36416; 71045; 71250; 80048; 80053; 80202; 80307; 83605; 83880; 84484; 85025; 85610; 85730; 87040; 87077; 87149; 87186; 93005; 94760; 96365; 96367; 97139; G0378; J0692; J0696; J1644; J1815; J3370; J3370-JW; J3490

== ENCOUNTER 2024-12-22 12:10 | Emergency (ER) | payer SELFPAY ==
[2024-12-22 12:42] LABS: #Basophils 0.04 10x3/uL (0.0-0.2); #Eosinophils 0.08 10x3/uL (0.0-0.7); #Monocytes 0.42 10x3/uL (0.11-0.59); #Neutrophils 2.57 10x3/uL (1.40-6.50); %Basophils 0.9 % (0.0-1.0); %Eosinophils 1.7 % (0.0-10.0); %Lymphocytes 33.6 % (21.0-51.0); %Monocytes 8.9 % (0.0-10.0); %Neutrophils 54.7 % (42.0-75.0); Hematocrit 44.9 % (42.0-52.0); Hemoglobin 14.8 g/dL (14.0-18.0); Mean Corpuscular Hemoglobin 30.4 pg (27.0-31.0); Mean Corpuscular Volume 92.2 fL (78.0-98.0); Platelet Count 216 10x3/uL (130-400); Red Blood Cell (RBC) Count 4.87 mill/uL (4.70-6.10); White Blood Cell (WBC) Count 4.70 10x3/uL (4.8-10.8)
[2024-12-22 12:56] LABS: ALT (SGPT) Less than 7 U/L (Less than 45); AST (SGOT) 12 U/L (11-34); Albumin 3.8 g/dL (3.1-4.5); Alkaline Phosphatase 124 U/L (40-110); Anion Gap 15 mmol/L (10-20); BUN (Urea Nitrogen) 10 mg/dL (8.4-25.7); Bilirubin, Total 0.6 mg/dL (0.3-1.2); Calc. Creatinine Clearance 0 mL/min (70-130); Calcium 9.2 mg/dL (7.8-10.44); Carbon Dioxide 24 mmol/L (22-29); Chloride 104 mmol/L (98-107); Globulin 3.4 g/dL (2.4-3.5); Glucose 98 mg/dL (70-105); Potassium 3.9 mmol/L (3.5-5.1); Sodium 139 mmol/L (136-145)
== END 2024-12-22 15:49 | disposition home or self-care (01) ==
LOC: ERS 12:10
DX: I11.0 Hypertensive heart disease with heart failure (principal); I50.9 Heart failure, unspecified; R07.9 Chest pain, unspecified; E11.9 Type 2 diabetes mellitus without complications; E78.5 Hyperlipidemia, unspecified; Z79.899 Other long term (current) drug therapy
CPT/HCPCS: 36415; 71045; 80053; 83880; 84484; 85025; 93005